=== PATIENT | female | born 1940 | race Caucasian/White ===

== ENCOUNTER 2019-07-25 08:49 | Outpatient (CLI) | payer MEDICARE, BC, SELFPAY ==
[2019-07-25 09:08] LABS: Abs Immature Grans 0.01 k/cumm (0.0-0.09); Absolute Basophil Count 0.04 k/cumm (0.0-0.2); Absolute Eosinophil Count 0.08 k/cumm (0.0-0.7); Absolute Lymphocyte Count 1.94 k/cumm (1.2-3.4); Absolute Monocyte Count 0.78 k/cumm (0.11-0.7); Absolute Neutrophil Count 3.34 k/cumm (1.2-6.7); Basophils % 0.6; Eosinophils % 1.3; HCT 40.9 % (36.0-46.0); HGB 13.2 g/dL (12.0-15.5); Immature Grans % 0.2; Lymphocytes % 31.3; Mean Corp. HGB Concentration 32.3 g/dL (32.0-36.0); Mean Corpuscular Hemoglobin 30.6 pg (27.0-33.0); Mean Corpuscular Volume 94.7 fL (80-95); Mean Platelet Volume 9.2 fL (8.0-11.0); Monocytes % 12.6; Platelet Count 211 x1000/uL (130-400); RBC 4.32 m/cumm (4.00-5.20); RBC Distribution Width 12.7 % (11.7-14.6); White Blood Cell Count 6.19 k/cumm (4.4-10.8)
[2019-07-25 09:24] LABS: ALT 16 U/L (14-59); AST 15 U/L (15-37); Albumin 3.1 g/dL (3.4-5.0); Alkaline Phosphatase 47 U/L (46-116); Anion Gap 8.3 mmol/L (3-11); BUN 15 mg/dL (7-18); Bilirubin, Total 0.7 mg/dL (0.2-1.0); CO2 27.7 mmol/L (21.0-32.0); CREATININE 0.93 mg/dL (0.55-1.02); Calcium 8.8 mg/dL (8.5-10.1); Chloride 109 mmol/L (98-107); Estimated GFR 58.31 (mL/min/1.73m2); Glucose 112 mg/dL (70-100); Potassium 4.1 mmol/L (3.5-5.1); Sodium 145 mmol/L (136-145); Total Protein 6.8 g/dL (6.4-8.2)
== END 2019-07-25 09:09 ==
PROVIDERS: PCP Family Medicine; Visit Provider Nurse Practitioner
DX: C54.1 Malignant neoplasm of endometrium (principal)
CPT/HCPCS: 36415; 80053; 85025

== ENCOUNTER 2023-08-12 00:12 | Inpatient (IN) | payer MEDICARE, BC, SELFPAY ==
--- NOTE | 2023-08-11 23:35 | HPE_ITS ---
Date of service: 08/11/23 Time of Service: 23:35 Assessment and Plan Assessment and plan (1) Hypertensive crisis without congestive heart failure: Start date: 08/11/23 Status: Acute Assessment and plan: This is an 83-year-old lady who was admitted 3 [facility] ED with hypertensive crisis requiring nicardipine drip initially and that facility which was weaned off prior to transfer to this facility for observation overnight and continued treatment of her uncontrolled hypertension. Her symptoms were not present at the time I saw the patient and she appears to be at baseline chronic medical conditions with mostly discussion about chronic pain and her disability. There is also quite extensive discussion about her inability to take multiple medications. She does have a history of diastolic dysfunction heart failure no mentation of heart failure at this presentation. She will have labs including troponin monitoring the patient having a history of chronically elevated troponins. She also has CKD which may contribute to this. If she remains s table she will be transferred back to her home with 24-hour care soon as possible. She is a full code. (2) Headache: Start date: 08/11/23 Status: Acute Assessment and plan: Patient is a poor historian and it is difficult to assess how severe her h eadache was as associated with her hypertension. She may have been anxious with her hypertension exacerbated by not taking her evening medications because of a headache rather than the headache being a result of her uncontrolled hypertension. Imaging appear to be stable. She appears to be stabilizing on increased dose of carvedilol which will be continued. Tylenol was given for headache. She is difficult to assess for pain since she has chronic pain and complains of continuous issues. (3) Hypertension: Assessment and plan: Chronic with difficulty treatment because of side effect of medications. Advance Coreg to 6.25 mg twice daily and reassess home medication list which has been updated. It appears she is on furosemide and continue to check her electrolytes though her lab at [facility] did not show any hypomagnesemia or hypokalemia. Long-term patient needs to lose weight and become more active which is unlikely. She is a full code. (4) Elevated troponin level not due to acute coronary syndrome: Status: Chronic Assessment and plan: Emergency room physician at [facility] reported that the patient has chronically elevated troponins which are stable which will be followed locally as well. (5) CKD (chronic kidney disease), stage II: Assessment and plan: This may contribute to chronically elevated troponins not normalizing. Monitor lab while in the hospital. Encourage oral hydration. (6) Hypothyroidism: Assessment and plan: Follow-up on [place] Thyroid dosing which may not be available at this hospital. Long-term follow-up with PCP. Check TSH. (7) PAF (paroxysmal atrial fibrillation): Assessment and plan: Patient appears to have controlled rate with medical regimen which will be continued. She is allergic to metoprolol and has been previously on diltiazem which has been stopped. Carvedilol may help control rate. (8) Epilepsy: Assessment and plan: Continue antiepileptics while in the hospital and follow-up neurology and PCP as scheduled. History of Present Illness History of Present Illness Chief Complaint: Blurred vision with headache and high blood pressure measurements at home Narrative: This is an 83-year-old female patient who was transported from [facility] after being evaluated and treated for hypertensive crisis with nicardipine drip which was weaned quickly when patient's systolic blood pressure responded dramatically. The patient was asymptomatic at the time I saw her noncompliant of blurred vision or headache and 100 and history not being able to answer questions about her history or medications. Her son did bring her home medications 2 [facility] ED and her medication list was updated. There is question whether she was compliant with her carvedilol and was on very low-dose at home. She has failed multiple medications because of side effects and allergies. She mentions that vitamin B12 recently was causing problems with her having itching and also GI symptoms. This appears to be a recurrent issue. She has a history of seizures status post CVA with left arm pain and weakness. She has pain over her entire body. Chronic problems include hypertension not well controlled presently, hypothyroidism on [place] Thyroid, Parkinson disease, GERD, depression, obstructive sleep apnea, diastolic congestive heart failure and mood disorder with chronic pain. She does not at home with 24-hour care and does occasionally ambulate with a walker but mostly does not walk because of pain in her lower extremities after her stroke. Her lower extremities are less weak than her left arm. She is a full code. Review of Systems Narrative: 13 point review of systems otherwise unrevealing or markedly positive for any question asked. She appears to be overall stable with 24-hour care and very little activity. She is awake. [facility] All Active Problems (Updated 08/12/23 @ 04:39 by Walt Montesinos) Elevated troponin level not due to acute coronary syndrome (Chronic) Headache (Acute) Hypertensive crisis without congestive heart failure (Acute) Medical History Anosmia Carotid arterial disease Carotid stenosis, asymptomatic Chronic fatigue CKD (chronic kidney disease), stage II Endometrial cancer Epilepsy Hypertension Hypothyroidism Memory changes PAF (paroxysmal atrial fibrillation) Resting tremor Surgical History History of appendectomy 196 History of cardiac cath 2009 History of cataract surgery 2005 History of cranial surgery Craniofacial APPR. -ANT FOSSA intradural resect of frontal lobe, 2010 History of hysterectomy 2013 History of laparoscopy with bilateral total pelvic lymphadenopathy, periaortic lymph node sampling, robotic. 2013 History of musculoskeletal system surgery History of surgery repair dura, secondary for CSF leak with flap, 2010 History of surgery excision or resection, lesion ANT. Fossa intradural, 2010 History of surgery Stereotactic computer assisted navigational cranial intradural, 2010 History of tubal ligation History of YAG laser capsulotomy of lens 2013 Social History Smoking/Tobacco Use Status: Never Smoking risk assessment performed?: Yes Alcohol Intake: never Drug use: Never Substance use type: does not use Housing: house Do you feel safe at home: Yes Additional Social history: Patient lives at home with caregivers. No family present on admission, patient is a poor historian. Meds Allergies and Home Medications Allergies Allergy/AdvReac Type Severity Reaction Status Date / Time iodine Allergy Severe Verified 07/19/23 13:44 cigarette smoke Allergy Verified 07/19/23 13:44 docusate [From Colace] Allergy Verified 07/19/23 13:44 lisinopril Allergy Verified 07/19/23 13:44 losartan Allergy Verified 07/19/23 13:44 metoprolol Allergy Verified 07/19/23 13:44 Penicillins Allergy Verified 07/19/23 13:44 phenazopyridine Allergy Verified 07/19/23 13:44 Sulfa (Sulfonamide Allergy Verified 07/19/23 13:44 Antibiotics) fabric softener sheets Allergy Uncoded 07/19/23 13:44 flu vaccines Allergy Uncoded 07/19/23 13:44 perfume Ht52 Allergy Uncoded 07/19/23 13:44 seafood Allergy Uncoded 07/19/23 13:44 sileage Allergy Uncoded 07/19/23 13:44 vitamin b-complex Allergy Uncoded 07/19/23 13:44 Home Medications Medication Instructions Recorded Confirmed Type acetaminophen 500 mg tablet 500 mg PO BID 07/19/23 08/12/23 History (Tylenol Extra Strength) levetiracetam 250 mg tablet 125 mg PO DAILY 07/19/23 08/12/23 History (Keppra) albuterol sulfate 90 mcg/actuation 2 inh inhalation Q4H PRN PRN 08/12/23 08/12/23 History breath activated powder inhaler (ProAir RespiClick) carboxymethylcellulose sodium 1 % 1 drp ophthalmic (eye) BID 08/12/23 08/12/23 History eye drops in a dropperette carvedilol 3.125 mg tablet 3.125 mg PO BID 08/12/23 08/12/23 History fexofenadine 60 mg tablet 60 mg PO BID 08/12/23 08/12/23 History fluticasone propionate 50 2 spray intranasal DAILY PRN PRN 08/12/23 08/12/23 History mcg/actuation nasal spray,suspension furosemide 20 mg tablet 20 mg PO DAILY 08/12/23 08/12/23 History hydroxyzine HCl 25 mg tablet 25 mg PO Q4H PRN PRN 08/12/23 08/12/23 History oxcarbazepine 150 mg tablet 150 mg PO BID 08/12/23 08/12/23 History pantoprazole 40 mg tablet,delayed 20 mg PO DAILY 08/12/23 08/12/23 History release thyroid (pork) 30 mg tablet 30 mg PO DAILY 08/12/23 08/12/23 History ([place] Thyroid) Exam Narrative Exam Narrative: General: Patient appears older than stated age, very talkative with pressured speech and wandering conversation, alert and oriented at least to person and place. She is in no acute distress but appears to be chronically distressed by her pain and discomfort with any part of body that is touched causing her to cry out in pain. She is obese. She appears deconditioned. HEENT: Normocephalic, eyes with pupils equal react light symmetrically, extraocular movement tachycardia sclera anicteric. Oropharynx with slightly dry mucosa and poor dentition. Neck: Supple without JVD. Back: Kyphotic without CVA tenderness. Lungs: Bronchovesicular breath sounds diffusely with fair aeration and no focalizing rales or rhonchi. Breast: Exam deferred. Heart: Irregular rhythm with normal rate, 3/6 to 4/6 systolic murmur left sternal border and apex. No gallop or rub. Abdomen: Obese contour, soft with diffuse tenderness but no guarding and no rebound. No palpable hepatosplenomegaly. Bowel sounds positive all quadrants. Genitalia/rectal: Exam deferred. Extremities: Without clubbing, cyanosis or pitting edema with patient having grossly nonpitting edema of lower extremities especially with obesity and left upper extremity having nonpitting edema compared to right with tender to palpation over legs and left arm. Skin: Pale, warm and dry. Neuro: Cranial nerves II through XII gross intact, decreased strength left upper extremity being 3-4 out of 5 with lower extremities moving normally the patient overall appearing weak stated she does not usually ambulate at home. She has no tremor. Psych: Flattened affect with depressed mood. Rumination over somatic complaints. No other abnormal thought processes. Remote and recent memory appear to be grossly intact though very difficult to follow patient's conversation and she does not know details such as her medication except that she has side effects to many. Results Labs 08/12/23 05:35 08/12/23 00:18 Labs: [facility], patient CBC was normal with normal WBC and hemoglobin as well as platelet count. BNP was elevated at 197 which is only slightly elevated. CMP was positive for glucose slightly up to 107 and calcium low at 8.3 with magnesium normal at 2 potassium normal at 3.6 liver function normal including total protein and albumin at 6.5 and 3.7 respectively. EKG showed sinus rhythm with moderate ST depression with no acute changes. CT of the head showed no acute intracranial pathology but chronic findings of bifrontal craniotomy defects and bilateral inferior frontal encephalomalacia as well as old lacunar infarcts within the right ledesma radiata. There is no evidence of intracranial mass or bleed. Chest x-ray showed mild linear bibasilar atelectasis with arthritic changes of the skeletal structures and no acute findings. Time Spent Time spent with Patient: >75 minutes Time was spent: preparing to see the patient(eg.review tests), obtaining and/or reviewing separately otained hiistory, ordering medications,tests, procedures, referring, communicating with other health career technical counselor, indepentently interpreting results and care coordination
[2023-08-12] VITALS (158 sets, daily range): BP systolic 116–209; BP diastolic 48–132; PULSE 61–82; RESP 11–42; TEMP 36.4–38; O2SAT 91–97
[2023-08-12 02:05] LABS: COVID-19 PCR Negative (Negative); Influenza A PCR Negative (Negative); Influenza B PCR Negative (Negative); RSV PCR Negative (Negative)
[2023-08-12 02:29] LABS: Source Nasopharynx
[2023-08-12 02:54] LABS: Bilirubin Negative (Negative); Blood Trace-intact (Negative); Clarity Clear (Clear); Glucose Negative (Negative); Ketones Negative (Negative); Leukocyte Esterase Small (Negative); Nitrite Negative (Negative); Specific Gravity 1.015 (1.005-1.025); Urobilinogen 0.2 mg/dL (Up to 0.2)
[2023-08-12 02:58] LABS: Bacteria Rare HPF (Negative); C & S Indicated? Yes; Casts Negative LPF (Negative); Crystals Negative HPF (Negative); Epithelial Cells Rare HPF (Negative); Mucus Negative (Negative); RBC 0-2 HPF (0-2)
[2023-08-12] MEDS: Normal Saline Flush 10 ML SYR IVP (05:44)
--- NOTE | 2023-08-12 06:37 | NUR.NOTE ---
Nursing Note: Breakfast ordered for patient. Patient requested milk despite stating that she is lactose intolerant. Dietary will send half&half.
[2023-08-12 06:46] LABS: HCT 36.3 % (36.0-46.0); HGB 11.9 g/dL (11.2-15.7); MCH 29.8 pg (27.0-33.0); MCHC 32.8 % (32.0-36.0); MCV 91 fL (80-95); MPV 9.5 fL (8.0-11.0); Platelet Count 222 10^3/uL (130-400); RDW 13.9 % (11.7-14.6); RDW-SD 46.5 fL; WBC 5.37 10^3/uL (4.4-10.8)
[2023-08-12 07:14] LABS: ALT 13 U/L (14-59); AST 16 U/L (15-37); Albumin 2.9 g/dL (3.4-5.0); Alkaline Phosphatase 49 U/L (46-116); Anion Gap 6.6 mmol/L (3-11); BUN 12 mg/dL (7-18); Bilirubin, Total 0.9 mg/dL (0.2-1.0); CO2 28.4 mmol/L (21.0-32.0); Calcium 8.7 mg/dL (8.5-10.1); Chloride 107 mmol/L (98-107); Estimated GFR 56.25 (mL/min/1.73m2); Glucose 101 mg/dL (74-106); Potassium 3.5 mmol/L (3.5-5.1); Sodium 142 mmol/L (136-145); TSH (W/Ref FT4) 15.51 uIU/mL (0.36-3.74); Total Protein 6.5 g/dL (6.4-8.2); Troponin I < 50 ng/L (<or=60)
[2023-08-12 07:34] LABS: FREE T4 0.75 ng/dL (0.76-1.46)
[2023-08-12] MEDS: Aspirin E.C. 81 MG TABEC PO (08:11)
[2023-08-12] MEDS: Carvedilol 6.25 MG TAB PO ×2 (08:11→19:28)
[2023-08-12] MEDS: niCARdipine 25 MG in Normal Saline 240 ML 50 MG IV (09:11)
[2023-08-12] MEDS: Enoxaparin 40 MG/0.4 ML SYR SC (09:19)
[2023-08-12] MEDS: amLODIPine 5 MG TAB 2.5 MG PO ×2 (10:00→17:21)
--- NOTE | 2023-08-12 10:12 | TELEP.MEDR_ITS ---
Date of service: 08/12/23 Time of Service: 10:12 Telepharmacy Home Med Rec Allergies Allergies: iodine Allergy (Severe, Verified 07/19/23 13:44) cigarette smoke Allergy (Verified 07/19/23 13:44) docusate [From Colace] Allergy (Verified 07/19/23 13:44) lisinopril Allergy (Verified 07/19/23 13:44) losartan Allergy (Verified 07/19/23 13:44) metoprolol Allergy (Verified 07/19/23 13:44) Penicillins Allergy (Verified 07/19/23 13:44) phenazopyridine Allergy (Verified 07/19/23 13:44) Sulfa (Sulfonamide Antibiotics) Allergy (Verified 07/19/23 13:44) fabric softener sheets Allergy (Uncoded 07/19/23 13:44) flu vaccines Allergy (Uncoded 07/19/23 13:44) perfume Ht52 Allergy (Uncoded 07/19/23 13:44) seafood Allergy (Uncoded 07/19/23 13:44) sileage Allergy (Uncoded 07/19/23 13:44) vitamin b-complex Allergy (Uncoded 07/19/23 13:44) Interview Person Interviewed: * Son (Raul Krueger) Quality Quality of Interview/Accuracy of Medication List: Excellent Sources Sources used to compile medication list: [facility] Medication List, Patient List and SureScripts Changes made to Home Medication List: ADDITIONS: * none DELETIONS: * Protonix * Keppra * Fexofenadine * Hydroxyzine CHANGES: * none Additional Notes Additional Notes: * none Recommended Changes Recommended Changes(reason for recommendation): * none Attestation: The home medication list is now updated to the best of my knowledge and is ready to be reconciled by the provider. Please contact the TelePharmacy Medication Reconciliation Pharmacist at for any questions.
--- NOTE | 2023-08-12 10:45 | INITIAL_ITS ---
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 They have radio time buyer 24/7 caregivers in the home. Her son Raul lives nearby and is very supportive. CURRENT FUNCTIONAL STATUS:: Ava was lying in bed when CM met with her. She stated that she is doing ok today. She was pleasant, but did not openly share information with this sign writer hand. She reported that she is happy with her care. CM attempted to call Raul, her son, for more information. Ava's caregiver, Shanna, reported that [place] is traveling to see Ava today, as [facility] is about an hour and a half from their home. CM will continue to follow. ADVANCE DIRECTIVES:: Not on file at [facility]. Has patient been provided with info about the portal/API?: Yes Did the patient sign up for the portal?: No CODE STATUS:: Full Code INSURANCE COVERAGE / FINANCIAL ISSUES:: [facility]. BC/BS out of state. CURRENT HOME/COMMUNITY SERVICES/EQUIPMENT:: 24/7 caregivers PRIMARY CARE PHYSICIAN:: Enma Sargent; [facility] in [place], [place]. POTENTIAL DISCHARGE NEEDS:: Follow up appointments. PATIENT/FAMILY EDUCATION NEEDS:: Review discharge instructions and limitations, discussion of self care needs including ask me three. ANTICIPATED BARRIERS TO DISCHARGE:: None identified. TRANSPORTATION:: Via private vehicle by her son, Raul. PLAN:: Anticipate Ava will return home once medically cleared. Her son will drive her home, and she will resume her 19/06 care. She will follow up with her PCP and discharge plan of care CM will continue to follow. PFSH All Active Problems (Updated 08/12/23 @ 11:44 by Amarilys Castorena MD) Discharge planning issues (Acute) DVT prophylaxis (Acute) Elevated troponin level not due to acute coronary syndrome (Chronic) Hypertensive crisis without congestive heart failure (Acute) Medical History Anosmia Carotid arterial disease Carotid stenosis, asymptomatic Chronic fatigue CKD (chronic kidney disease), stage II Endometrial cancer Epilepsy Hypertension Hypothyroidism Memory changes PAF (paroxysmal atrial fibrillation) Resting tremor Surgical History History of appendectomy 196 History of cardiac cath 2009 History of cataract surgery 2005 History of cranial surgery Craniofacial APPR. -ANT FOSSA intradural resect of frontal lobe, 2011 History of hysterectomy 2014 History of laparoscopy with bilateral total pelvic lymphadenopathy, periaortic lymph node sampling, robotic. 2014 History of musculoskeletal system surgery History of surgery repair dura, secondary for CSF leak with flap, 2010 History of surgery excision or resection, lesion ANT. Fossa intradural, 2010 History of surgery Stereotactic computer assisted navigational cranial intradural, 2010 History of tubal ligation History of YAG laser capsulotomy of lens 2013 Social History Smoking/Tobacco Use Status: Never Smoking risk assessment performed?: Yes Alcohol Intake: never Drug use: Never Substance use type: does not use Housing: house Do you feel safe at home: Yes Additional Social history: Patient lives at home with caregivers. No family present on admission, patient is a poor historian.
[2023-08-12] MEDS: Refresh PLUS Eye Drops 0.4ml 1 EACH OU ×2 (11:26→19:29)
--- NOTE | 2023-08-12 11:34 | PGE_ITS ---
Date of Service Date of service: 08/12/23 Time of Service: 10:00 Assessment and Plan Assessment and plan (1) Hypertensive crisis without congestive heart failure: Start date: 08/11/23 Status: Acute Assessment and plan: BP much better. We are attempting to switch the patient to all oral medications: coreg + amlodipine. She did require nicardipine today, so I would keep her in the ICU for now. (2) Headache: Start date: 08/11/23 Status: Resolved Assessment and plan: The patient now adamantly denies having a headache. It was all the other pains (such as chest pain, LUE pain, leg pain, foot pain) that brought her to the ER. (3) Hypertension: Assessment and plan: As above (4) Elevated troponin level not due to acute coronary syndrome: Status: Chronic Assessment and plan: Troponin this am was negative. I am repeating it and obtaining a repeat EKG. Doubt ACS. (5) CKD (chronic kidney disease), stage II: Assessment and plan: Cr is 1.0 today, GFR is 56.25. Continue to monitor (6) Hypothyroidism: Assessment and plan: Usually on [place] Thyroid 30 mg daily. TSH was 15. Increase armour thyroid to 45 mg daily. (7) PAF (paroxysmal atrial fibrillation): Assessment and plan: Rates appear controlled on coreg. Continue. (8) Epilepsy: Assessment and plan: We are clarifying antiepeliptics. (9) DVT prophylaxis: Status: Acute Assessment and plan: D/c SCDs as she is on enoxaparin and has BLE tenderness. (10) Discharge planning issues: Status: Acute Assessment and plan: Full code C/s PT and palliative care. Has 24 hr care at home as is expected to return home on discharge. Total Critical Care Time 40 minutes. Subjective Subjective Interval history since last seen: Ms Krueger states that she never had a headache yesterday. She did have a chest pain and arm pain (chronic), back pain (chronic), and leg pain (chronic). Chest pain has resolved. She states she is not having blurred or double vision. The eyes do feel dry and she usually uses refresh tears. She states her son is bringing her medications to the hospital so that we can make sure that they are right. She states her seizure meds were changed recently. Denies nausea. Was started on cardene gtt this morning when her BP was 206/84, then down to 1 86/70. Exam Narrative Exam Narrative: General: Pleasant mildly anxious Elderly female who is A&Ox3, NAD HEENT: EOMI, MMM Heart: RRR, + JOSE Lungs: CTAB Abdomen: soft, nontender, nondistended Extremities: +1 edema BLEs, symmetric, wearing SCDs; TTP tibial surfaces. Objective Last Vital Signs Temp 36.6 C 08/12/23 11:05 Pulse 68 08/12/23 11:05 Resp 20 08/12/23 11:05 BP 126/53 L 08/12/23 11:05 Pulse Ox 93 08/12/23 11:05 Laboratory Results - last 24 hr 08/12/23 08/12/23 08/12/23 01:10 01:10 05:30 WBC RBC Hgb Hct MCV MCH MCHC RDW Plt Count MPV Sodium 142 Potassium 3.5 Chloride 107 Carbon Dioxide 28.4 Anion Gap 6.6 BUN 12 Creatinine 1.0 Est GFR (CKD-EPI 2020) 56.25 Glucose 101 Calcium 8.7 Total Bilirubin 0.9 AST 16 ALT 13 L Alkaline Phosphatase 49 Troponin I < 50 Total Protein 6.5 Albumin 2.9 L TSH 15.51 H Free T4 0.75 L Urine Color Yellow Urine Clarity Clear Urine pH 7.0 Ur Specific [place] 1.015 Urine Protein Negative Urine Ketones Negative Urine Blood Trace-intact H Urine Nitrite Negative Urine Bilirubin Negative Urine Urobilinogen 0.2 Ur Leukocyte Esterase Small H Urine RBC 0-2 Urine WBC 3-5 Ur Epithelial Cells Rare Urine Crystals Negative Urine Bacteria Rare Urine Casts Negative Urine Mucus Negative Ur Culture Indicated? Yes Urine Glucose Negative Digoxin Cancelled COVID-19 Source Nasopharynx SARS-CoV-2 (PCR) Negative Influenza Type A (PCR) Negative Influenza Type B (PCR) Negative RSV (PCR) Negative 08/12/23 08/12/23 05:30 05:35 WBC 5.37 RBC 4.00 Hgb 11.9 Hct 36.3 MCV 91 MCH 29.8 MCHC 32.8 RDW 13.9 Plt Count 222 MPV 9.5 Sodium Cancelled Potassium Cancelled Chloride Cancelled Carbon Dioxide Cancelled Anion Gap Cancelled BUN Cancelled Creatinine Cancelled Est GFR (CKD-EPI 2020) Cancelled Glucose Cancelled Calcium Cancelled Total Bilirubin Cancelled AST Cancelled ALT Cancelled Alkaline Phosphatase Cancelled Troponin I Total Protein Cancelled Albumin Cancelled TSH Free T4 Urine Color Urine Clarity Urine pH Ur Specific [place] Urine Protein Urine Ketones Urine Blood Urine Nitrite Urine Bilirubin Urine Urobilinogen Ur Leukocyte Esterase Urine RBC Urine WBC Ur Epithelial Cells Urine Crystals Urine Bacteria Urine Casts Urine Mucus Ur Culture Indicated? Urine Glucose Digoxin COVID-19 Source SARS-CoV-2 (PCR) Influenza Type A (PCR) Influenza Type B (PCR) RSV (PCR) Time Spent with Patient Time Spent with Patient: 35-49 minutes Time was spent: preparing to see the patient(eg.review tests), obtaining and/or reviewing separately otained hiistory, ordering medications,tests, procedures, referring, communicating with other health career development manager, indepentently interpreting results, counseling the patient and care coordination
--- NOTE | 2023-08-12 11:45 | RT.EKG_ITS ---
APPROVED REPORT Exam: Resting ECG Reason for Exam: follow up chest pain Patient Location: I HR:70 bpm ECG Measurements Heart Rate 70 AXIS NC 148 P -18 QRSd 74 QRS -4 QT 470 T 54 QTc 508 Conclusion Sinus rhythm...normal P axis, V-rate 50- [address] depression, lateral leads...ST <-0.07mV, I aVL V5 V6 Prolonged QT interval...QTc >500mS
[2023-08-12 12:42] LABS: Troponin I < 50 ng/L (<or=60)
[2023-08-12] MEDS: OXcarbazepine 150 MG TAB PO ×2 (12:50→19:29)
[2023-08-12 16:49] LABS: COVID-19 PCR Negative (Negative); Influenza A PCR Negative (Negative); Influenza B PCR Negative (Negative); RSV PCR Negative (Negative); Source NASOPHARYNX
--- NOTE | 2023-08-12 17:09 | DI.RAD_ITS ---
Exam(s) XR PORTABLE CHEST AP EXAM: XR PORTABLE CHEST AP CLINICAL HISTORY: fever TECHNIQUE: 2D digital imaging was performed. COMPARISON: No exams were available for comparison FINDINGS: Leads overlie the chest. LUNGS: Clear. No pleural abnormality seen. HEART: Normal size. AORTA: Normal diameter. BONES: Unremarkable for age. Soft tissues: Unremarkable. IMPRESSION: No acute findings. DATA REPOSITORY: RADIATION DOSE DELIVERED:
--- NOTE | 2023-08-12 17:46 | DI.VRAD_ITS ---
PROCEDURE INFORMATION: Exam: XR Chest Exam date and time: 08/12/2023 4:50 PM Age: 83 years old Clinical indication: Fever TECHNIQUE: Imaging protocol: Radiologic exam of the chest. Views: 1 view. COMPARISON: No relevant prior studies available. FINDINGS: Tubes, catheters and devices: There are electrocardiographic leads on the thorax. Lungs: Unremarkable. No consolidation. Pleural spaces: Unremarkable. No pleural effusion. No pneumothorax. Heart/Mediastinum: The heart is normal in size and configuration. There is calcification within the normal-sized aorta. Bones/joints: Moderate degenerative changes of the osseous structures. IMPRESSION: No acute cardiopulmonary disease. Dictated and Authenticated by: Shahbaz Lopez MD. Ordering:PADMINI Panda MD
[2023-08-12 18:16] LABS: Bilirubin Negative (Negative); Blood Negative (Negative); Clarity Clear (Clear); Glucose Negative (Negative); Ketones Negative (Negative); Leukocyte Esterase Negative (Negative); Nitrite Negative (Negative); Urobilinogen 0.2 mg/dL (Up to 0.2); pH 7.5 (5-8)
[2023-08-12] MEDS: Refresh PLUS Eye Drops 0.4ml 1 EACH OP (19:30)
[2023-08-12] MEDS: niCARdipine 25 MG in Normal Saline 240 ML IV (19:37)
[2023-08-13] VITALS (87 sets, daily range): BP systolic 105–186; BP diastolic 49–105; PULSE 62–113; RESP 13–25; TEMP 36.2–37.4; O2SAT 93–96
[2023-08-13 06:57] LABS: Abs Immature Grans 0.02 10^3/uL (0.0-0.06); Absolute Basophil Count 0.04 10^3/uL (0.0-0.2); Absolute Eosinophil Count 0.06 10^3/uL (0.0-0.7); Absolute Lymphocyte Count 2.38 10^3/uL (1.2-3.4); Absolute Monocyte Count 0.97 10^3/uL (0.1-0.8); Absolute Neutrophil Count 3.49 10^3/uL (1.2-6.7); Basophils % 0.6; Eosinophils % 0.9; HCT 36.5 % (36.0-46.0); HGB 12.3 g/dL (11.2-15.7); Immature Grans % 0.3; Lymphocytes % 34.2; MCHC 33.7 % (32.0-36.0); MCV 89 fL (80-95); Monocytes % 13.9; Neutrophils % 50.1; RDW-SD 45.7 fL; WBC 6.96 10^3/uL (4.4-10.8)
[2023-08-13 07:21] LABS: Platelet Count 202 10^3/uL (130-400)
[2023-08-13 07:29] LABS: BUN 14 mg/dL (7-18); CREATININE 0.9 mg/dL (0.55-1.02); Calcium 8.9 mg/dL (8.5-10.1); Chloride 105 mmol/L (98-107); Estimated GFR 63.83 (mL/min/1.73m2); Glucose 102 mg/dL (74-106); Magnesium 2.1 mg/dL (1.8-2.4); Potassium 3.4 mmol/L (3.5-5.1); Sodium 140 mmol/L (136-145)
[2023-08-13] MEDS: Refresh PLUS Eye Drops 0.4ml 1 EACH OP ×2 (07:45→19:39)
[2023-08-13] MEDS: OXcarbazepine 150 MG TAB PO ×2 (07:45→19:38)
[2023-08-13] MEDS: amLODIPine 2.5 MG TAB 5 MG PO (07:45)
[2023-08-13] MEDS: Enoxaparin 40 MG/0.4 ML SYR SC (07:45)
[2023-08-13] MEDS: Cyanocobalamin 500 MCG TAB 1000 MCG PO (07:46)
[2023-08-13] MEDS: Carvedilol 6.25 MG TAB PO (07:46)
[2023-08-13] MEDS: Furosemide 20 MG TAB PO (07:46)
[2023-08-13] MEDS: Aspirin E.C. 81 MG TABEC PO (07:46)
[2023-08-13] MEDS: Potassium Chloride 10 MEQ CAPCR 20 MEQ PO ×2 (10:00→19:38)
--- NOTE | 2023-08-13 10:41 | W.PM.PROGNOT ---
Date of Service Date of service: 08/13/23 Time of Service: 10:41 Assessment and Plan Assessment and plan (1) Hypertensive crisis without congestive heart failure: Start date: 08/11/23 Status: Acute Assessment and plan: BP much improved on current oral regimen of amlodipine 5 mg daily and Coreg 6.25 mg bid. Nicardipine just shut off this a.m. Will watch her in the ICU for rest of this morning and early afternoon but if no exacerbations over 180 systolic then she could move to med/surg later today w/ telemetry. I would add spironolactone to her diuretic regimen to correct her hypokalemia and may help w/ keeping her out of CHF. (2) Headache: Start date: 08/11/23 Status: Resolved Assessment and plan: The patient now adamantly denies having a headache. It was all the other pains (such as chest pain, LUE pain, leg pain, foot pain) that brought her to the ER. Her pains seem to be multifocal and more increased sensitivity to touch rather than any soft tissue injury (3) Hypertension: Assessment and plan: As above (4) Elevated troponin level not due to acute coronary syndrome: Status: Chronic Assessment and plan: will check echocardiogram tomorrow given the severity of her hypertension to evlauate for LVH, LV wall motion abnoralities as this could guide titration of her diuretics and antihypertensives (5) CKD (chronic kidney disease), stage II: Assessment and plan: although her calculated eGR is 6.38 mL/min/1.73 m2, she has no proteinuria despite the severity of her HTN and all of her creatinine levels have been 1 or less. (6) Hypothyroidism: Assessment and plan: Usually on [place] Thyroid 30 mg daily. TSH was 15. Increase armour thyroid to 45 mg daily. recheck her thryoid levels in 6 to 8 weeks (7) PAF (paroxysmal atrial fibrillation): Assessment and plan: Rates appear controlled on coreg. Continue. Rhythm remains NSR (8) Epilepsy: Assessment and plan: We are clarifying antiepeliptics. (9) DVT prophylaxis: Status: Acute Assessment and plan: on enoxaparin, does not take any anticoagulants at home. (10) Discharge planning issues: Status: Acute Assessment and plan: Full code C/s PT and palliative care. Has 24 hr care at home as is expected to return home on discharge. No longer needs ICU care now she is off nifedipine drip as long as she does not have exacerbation over next couple hours Subjective Subjective Interval history since last seen: Patient BP has improved his morning. Nicardipine drip is now off, BP is 112/61 and HR is 65 SR. She denies any headache. She has diffuse chest wall pain but no dyspnea, she has reproducible tenderness over her left anterolateral chest wall and over her back and over her right posterolateral chest wall but also her legs. Exam Narrative Exam Narrative: Elderly white female who is mildly confused, obsessed about her medications She is alert, sitting up in her chair in no acute distress Lungs: clear Heart: RRR Abdomen: soft, nontender Legs: 1+ pedal and distal leg edema Objective Last Vital Signs Temp 37.4 C 08/13/23 08:00 Pulse 66 08/13/23 10:05 Resp 19 08/13/23 10:05 BP 118/58 L 08/13/23 10:05 Pulse Ox 94 08/13/23 06:00 Laboratory Results - last 24 hr 08/12/23 08/12/23 08/12/23 12:15 16:00 17:30 WBC RBC Hgb Hct MCV MCH MCHC RDW Plt Count MPV Immature Gran % Neutrophils % Lymphocytes % Monocytes % Eosinophils % Basophils % Nucleated RBC % Absolute Neutrophils Absolute Lymphocytes Absolute Monocytes Absolute Eosinophils Absolute Basophils Sodium Potassium Chloride Carbon Dioxide Anion Gap BUN Creatinine Est GFR (CKD-EPI 2020) Glucose Calcium Magnesium Troponin I < 50 Urine Color Yellow Urine Clarity Clear Urine pH 7.5 Ur Specific [place] 1.020 Urine Protein Negative Urine Ketones Negative Urine Blood Negative Urine Nitrite Negative Urine Bilirubin Negative Urine Urobilinogen 0.2 Ur Leukocyte Esterase Negative Urine Glucose Negative COVID-19 Source NASOPHARYNX SARS-CoV-2 (PCR) Negative Influenza Type A (PCR) Negative Influenza Type B (PCR) Negative RSV (PCR) Negative 08/13/23 08/13/23 05:32 05:32 WBC 6.96 RBC 4.10 Hgb 12.3 Hct 36.5 MCV 89 MCH 30.0 MCHC 33.7 RDW 14.0 Plt Count 202 MPV Immature Gran % 0.3 Neutrophils % 50.1 Lymphocytes % 34.2 Monocytes % 13.9 Eosinophils % 0.9 Basophils % 0.6 Nucleated RBC % 0.0 Absolute Neutrophils 3.49 Absolute Lymphocytes 2.38 Absolute Monocytes 0.97 H Absolute Eosinophils 0.06 Absolute Basophils 0.04 Sodium 140 Potassium 3.4 L Chloride 105 Carbon Dioxide 24.0 Anion Gap 11.0 BUN 14 Creatinine 0.9 Est GFR (CKD-EPI 2020) 63.83 Glucose 102 Calcium 8.9 Magnesium 2.1 Troponin I Urine Color Urine Clarity Urine pH Ur Specific [place] Urine Protein Urine Ketones Urine Blood Urine Nitrite Urine Bilirubin Urine Urobilinogen Ur Leukocyte Esterase Urine Glucose COVID-19 Source SARS-CoV-2 (PCR) Influenza Type A (PCR) Influenza Type B (PCR) RSV (PCR) Time Spent with Patient Time Spent with Patient: 35-49 minutes Time was spent: preparing to see the patient(eg.review tests), ordering medications,tests, procedures, referring, communicating with other health long term care social worker, indepentently interpreting results and care coordination
[2023-08-13] MEDS: Spironolactone 25 MG TAB PO (12:34)
[2023-08-13] MEDS: amLODIPine 5 MG TAB PO (18:41)
[2023-08-13] MEDS: Normal Saline Flush 10 ML SYR IVP (19:37)
[2023-08-13] MEDS: Carvedilol 6.25 MG TAB 12.5 MG PO (19:39)
[2023-08-14] VITALS (13 sets, daily range): BP systolic 120–168; BP diastolic 58–85; PULSE 63–76; RESP 16–23; TEMP 36.7–37.2; O2SAT 98
--- NOTE | 2023-08-14 08:00 | DI.US_ITS ---
Exam(s) US RENAL EXAM: US RENAL CLINICAL HISTORY: chronic kidney diseases; eval. size/structure. TECHNIQUE: Vines scale, color and spectral Doppler were used. COMPARISON: No exams were available for comparison FINDINGS: Renal size in cm: Right: 9.5 column Lonnie Left: 8.8 cm Echogenicity: Normal Hydronephrosis: No Cyst or mass: No Nephrolithiasis: No Bladder:Normal . Ureteral jets not visualized. Prevoid vol: 91 cc Postvoid vol: Patient unable to void IMPRESSION: Normal renal echogenicity. No stone or hydronephrosis. DATA REPOSITORY:
[2023-08-14 08:40] LABS: Anion Gap 8.8 mmol/L (3-11); BUN 14 mg/dL (7-18); CO2 24.2 mmol/L (21.0-32.0); Calcium 8.7 mg/dL (8.5-10.1); Chloride 107 mmol/L (98-107); Estimated GFR 56.25 (mL/min/1.73m2); Glucose 104 mg/dL (74-106); Potassium 3.5 mmol/L (3.5-5.1); Sodium 140 mmol/L (136-145)
[2023-08-14] MEDS: Aspirin E.C. 81 MG TABEC PO (08:49)
[2023-08-14] MEDS: Spironolactone 25 MG TAB PO (08:49)
[2023-08-14] MEDS: Carvedilol 6.25 MG TAB 12.5 MG PO (08:50)
[2023-08-14] MEDS: Cyanocobalamin 500 MCG TAB 1000 MCG PO (08:50)
[2023-08-14] MEDS: OXcarbazepine 150 MG TAB PO (08:50)
[2023-08-14] MEDS: amLODIPine 2.5 MG TAB 10 MG PO (08:50)
[2023-08-14] MEDS: Furosemide 20 MG TAB PO (08:51)
[2023-08-14] MEDS: Refresh PLUS Eye Drops 0.4ml 1 EACH OP (08:51)
[2023-08-14] MEDS: Enoxaparin 40 MG/0.4 ML SYR SC (08:51)
--- NOTE | 2023-08-14 09:32 | W.PM.PROGNOT ---
Date of Service Date of service: 08/14/23 Time of Service: 09:32 Assessment and Plan Assessment and plan (1) Hypertensive crisis without congestive heart failure: Start date: 08/11/23 Status: Acute Assessment and plan: BP much improved running in the 150's to 160, I think her levels are adequate for discharge home w/ outpatient titration of her bp meds. Echo can be pursued as outpatient if not able to complete today. I have written for her transfer to med/surg early this morning but she may be dc home prior to transfer. No further telemetry needed. Continue amlodipine 10 mg daily, coreg 12.5 mg bid, lasix 20 mg daily and spironolactone 25 mg daily. K+ now up to 3.5, I have stopped her potassium supplementation. Professional time spent interviewing and examining patient, discussion of goals of care with hospital team (care management, nursing and consulting professionals) was 30 minutes. (2) Hypertension: Assessment and plan: As above (3) Elevated troponin level not due to acute coronary syndrome: Status: Chronic Assessment and plan: can pursue echo as outpatient. she has not had any ischemic pain. I suspect her troponin leak was from her hypertension (4) CKD (chronic kidney disease), stage II: Assessment and plan: although her calculated eGR is 6.38 mL/min/1.73 m2, she has no proteinuria despite the severity of her HTN and all of her creatinine levels have been 1 or less. I do not believe she has any significant renal failure. Renal US was checked this morning and is pending results. (5) Hypothyroidism: Assessment and plan: Usually on [place] Thyroid 30 mg daily. TSH was 15. Increase armour thyroid to 45 mg daily. recheck her thryoid levels in 6 to 8 weeks (6) PAF (paroxysmal atrial fibrillation): Assessment and plan: Rates appear controlled on coreg. Continue. Rhythm remains NSR (7) Epilepsy: Assessment and plan: oxcarbazepine 150 mg bid. (8) DVT prophylaxis: Status: Acute Assessment and plan: on enoxaparin, does not take any anticoagulants at home. (9) Discharge planning issues: Status: Acute Assessment and plan: Full code C/s PT and palliative care. Has 24 hr care at home as is expected to return home on discharge. No longer needs ICU care now she is off nifedipine drip as long as she does not have exacerbation over next couple hours Subjective Subjective Interval history since last seen: Patient is doing better from her BP. She has not required any resumption of her nicardipine drip. She is now on amlodipine 10 mg daily along w/ carvedilol 12.5 mg bid as well as spironolactone and furosemide. I have requested P.T. consultation regarding evaluation and recommendation regarding amublation for readiness for home discharge. She states she [place] in [place], [place] and has 24 hour care. I will confer w/ CM as to her home situation and viabilitiy in getting her home. Possible dc later today. Renal US was just done this morning. Echo was ordered but may not get completed prior to her discharge as there were a number of echo's ordered over the weekend and the white goods appliance tech had to prioritize them. Patient has no dyspnea or CP but has her usual aches and pains in her legs, lower back (chronic condition for and she has been evaluated by pain center) Exam Narrative Exam Narrative: Eldery white female in no acute distress, lying in bed, alert and oriented to person/place Lungs: clear Heart: regular (monitor shows SR 68 bpm), soft systolic murmur heard over apex, c/w MR Abdomen, soft, nontender Legs: 1+ edema, tender to palpation w/out increased warmth nor any erythema, symmetrical swelling Objective Last Vital Signs Temp 37.2 C 08/14/23 05:01 Pulse 66 08/14/23 05:57 Resp 19 08/14/23 05:57 BP 150/74 H 08/14/23 05:57 Pulse Ox 98 08/14/23 05:01 Laboratory Results - last 24 hr 08/14/23 08:15 Sodium 140 Potassium 3.5 Chloride 107 Carbon Dioxide 24.2 Anion Gap 8.8 BUN 14 Creatinine 1.0 Est GFR (CKD-EPI 2020) 56.25 Glucose 104 Calcium 8.7 Magnesium 2.0 Time Spent with Patient Time Spent with Patient: 25-34 minutes Time was spent: preparing to see the patient(eg.review tests), ordering medications,tests, procedures, indepentently interpreting results, counseling the patient and care coordination
--- NOTE | 2023-08-14 09:42 | PDOC.CMPRO ---
Date of service: 08/14/23 Time of Service: 09:42 Care Management Progress Note Progress Note Text Progress Note Text: S/O: A: Ava is an 83 year old female admitted to [facility] on 08/12/23 for hypertensive crisis. P: Anticipate Ava will return home once medically cleared. Her son will drive her home, and she will resume her 19/06 care. She will follow up with her PCP and discharge plan of care CM will continue to follow.
--- NOTE | 2023-08-14 11:24 | PT.INIE ---
Date of service: 08/14/23 Time of Service: 11:24 PT Notes Visit Reasons: Hypertensive Crisis Physical Therapy Inpatient Initial Evaluation Date: 08/14/2023 Referring Doctor: Jean Mathew MD PT Orders: PT CONSULT: Fall safety assessment Precautions: Fall. Standard. Activity as tolerated. Patient Profile/Admitting Diagnosis: Ava is an 83-year-old female admitted to the ICU for management of hypertensive crisis with CHF, headache, hypertension, elevated troponin, chronic kidney disease, hypothyroidism, PAF, and epilepsy. PMHX: All Active Problems?(Updated 08/12/23 @ 04:39 by Walt Montesinos) Elevated troponin level not due to acute coronary syndrome (Chronic) Headache (Acute) Hypertensive crisis without congestive heart failure (Acute) Medical History? Anosmia Carotid arterial disease Carotid stenosis, asymptomatic Chronic fatigue CKD (chronic kidney disease), stage II Endometrial cancer Epilepsy Hypertension Hypothyroidism Memory changes PAF (paroxysmal atrial fibrillation) Resting tremor Surgical History? History of appendectomy 1960 History of cardiac cath 2009 History of cataract surgery 2005 History of cranial surgery Craniofacial APPR. -ANT FOSSA intradural resect of frontal lobe, 2010 History of hysterectomy 2013 History of laparoscopy with bilateral total pelvic lymphadenopathy, periaortic lymph node sampling, robotic. 2013 History of musculoskeletal system surgery History of surgery repair dura, secondary for CSF leak with flap, 2010 History of surgery excision or resection, lesion ANT. 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 Has / caregivers. Modified independent with use of [employer]. Equipment Owned/DME: [employer] Subjective: Confident about going home today as she has people who can take care of her at home. Denies headache, chest pain, and lightheadedness throughout session. Objective: General Observation: Seated on bedside chair. Telemetry monitoring in place. Mental Status: Alert and oriented as to person, place, time, and purpose. Able to pay attention, focus, and respond appropriately. Pain: Denies Vital Signs: Closely monitored via telemetry ROM: Right Upper Extremity: Shoulder Flexion WFL. Shoulder abduction WFL. Elbow flexion WFL. Wrist flexion WFL. Functional opening and closing of hand WFL. Left Upper Extremity: Shoulder Flexion WFL. Shoulder abduction WFL. Elbow flexion WFL. Wrist flexion WFL. Functional opening and closing of hand WFL. Right Lower Extremity: Hip flexion WFL. Hip abduction WFL. Knee flexion WFL. Ankle dorsiflexion WFL. Ankle plantarflexion WFL. Left Lower Extremity: Hip flexion WFL. Hip abduction WFL. Knee flexion WFL. Ankle dorsiflexion WFL. Ankle plantarflexion WFL. Strength: Right Upper Extremity: Shoulder flexors 4/5. Shoulder abductors 4/5. Elbow flexors 4/5. Elbow extensors 4/5. Shipping And Receiving strong. Left Upper Extremity: Shoulder flexors 4/5. Shoulder abductors 4/5. Elbow flexors 4/5. Elbow extensors 4/5. Shipping And Receiving strong. Right Lower Extremity: Hip flexors 4/5. Hip abductors 4/5. Knee flexors 4/5. Knee extensors 4/5. Ankle dorsiflexors 4/5. Ankle plantarflexors 4/5. Left Lower Extremity: Hip flexors 4/5. Hip abductors 4/5. Knee flexors 4/5. Knee extensors 4/5. Ankle dorsiflexors 4/5. Ankle plantarflexors 4/5. Bed Mobility/Transfers: Rolling independent Supine to sit independent Sit to supine independent Sit to stand supervision with [employer] Stand to sit supervision with SB[employer] Gait: Instructed patient with level surface ambulation of 80 feet requiring stand by assist using SBQC. Leandra decreased. Step height decreased. Step length decreased. Balance: Static Sitting: Normal Dynamic Sitting: Normal Static Standing: Fair Dynamic Standing: Fair Special Tests: Mobility Limitations Standardized Measure [facility] AM-PAC 6 clicks Basic Mobility Inpatient Short Form: Raw Score: 23 CMS Score: % deficit Informed Consent/Education: Patient was instructed in purpose of PT consult. Agreeable to home health PT services to ensure a smooth transition to home for her. Assessment: Patient presents with clinical signs and symptoms consistent with current/admitting diagnoses that have resulted to mobility limitations, gait instability, generalized weakness, and overall ADL decline as demonstrated by the following impairment level findings: 1. Impaired standing balance 2. Impaired activity tolerance 3. Shortness of breath Impairments are contributing to the following functional limitations: 1. Difficulty with ambulation without assistive device 2. Increased completion time for mobility ADL performance 3. Increased risk for falls Patient is assessed as a 9716 moderate complexity based on the following: History: 83-year-old female with past medical history as indicated above Examination: Demonstrable impairment in strength, balance, and mobility level with underlying impairments and functional limitations as exhibited above as well as deficit score of 11% utilizing the [facility] Mobility Inpatient Short Form Presentation: Evolving Decision Makin moderate complexity Goals: N/A. PT evaluation 1 treatment session only for functional mobility training. Plan of Care/Treatment Plan: N/A. PT evaluation 1 treatment session only for functional mobility training. DISCHARGE RECOMMENDATIONS: [] Home with no services [] [X] Home with services. Patient will benefit from home health PT services in order to progress mobility level using least restrictive assistive ambulatory device, assess home safety, identify additional equipment needs, and establish a functional maintenance program that will increase ability of patient to remain at home. [] Home with outpatient PT [] [] SNF for continued rehabilitation [] [] [employer] Care [] [] SNF versus LTC based on ability to participate and progress [] TREATMENT CODE/TIME: 16864 x 27 minutes for 1 unit beginning at 11:24 AM. Thank you for the opportunity to participate in the care of this patient. Mana Rosas PT, DPT, CLT [facility] [place], [place]
--- NOTE | 2023-08-14 12:46 | DI.US_ITS ---
APPROVED REPORT EXAM: Comprehensive 2D, Doppler, and color-flow Echocardiogram Patient Location: In-Patient Room/Bed: ICU Indications: Elevated troponin, Evaluate LV function, HTN A Fib Other Information Study Quality: Adequate. Technically limited study due to inability to position patient exam done sup ine bedside icu,, body habitus. Conclusion Mild concentric left ventricular hypertrophy. Ejection fraction is 55%. Wall motion is normal Normal right ventricular size and systolic function Both atria are normal in size Aortic valve is mildly sclerotic and trileaflet with mild regurgitation Mild mitral annular calcification. Mild to moderate mitral regurgitation Normal tricuspid valve with trace regurgitation. Estimated right ventricular systolic pressure is 32 mmHg Wall motion Left Ventricle The left ventricle is normal size. The left ventricular systolic function is normal. The left ventric ular ejection fraction is within the normal range. Mild concentric left ventricular hypertrophy. Ther e is normal LV segmental wall motion. There is no ventricular septal defect visualized. LVEF is 55%. Right Ventricle The right ventricle is normal size. The right ventricular systolic function is normal. Atria The left atrium size is normal. The right atrium size is normal. The interatrial septum is intact wit h no evidence for an atrial septal defect. Aortic Valve The Aortic valve is mildly sclerotic. Aortic valve is trileaflet. There is no aortic valvular stenosi s. Mild aortic regurgitation. Mitral Valve Mild mitral annular calcification. No evidence of mitral valve stenosis. Mild to moderate mitral regu rgitation. Tricuspid Valve The tricuspid valve is normal in structure. There is no tricuspid valve stenosis. Trace tricuspid reg urgitation. The RVSP is 32.4 mmHg. Pulmonic Valve The pulmonary valve is normal in structure. There is no pulmonic valvular stenosis. Trace pulmonic re gurgitation. Great Vessels The aortic root is normal in size. The ascending aorta is normal in size. Aortic arch is not well vis ualized. IVC is normal in size and collapses >50% with inspiration. Pericardium There is no pericardial effusion. 2D Dimensions IVSD d PLAX 1.13 cm F: 0.6-1.0 Ao Root d 2.55 cm F: 2.7 - 3.3 LVPW d PLAX 1.10 cm F: 0.6 - 1.0 Ao Asc Diam d 2.96 cm F: 2.3 - 3.1 LVID d PLAX 4.51 cm F: 3.8 - 5.2 LVDs 3.21 cm F: 2.2 - 3.5 LV EF Teichholz 55.4 % FS 28.68 % LV EDV (Teich) 92.8 mL LV ESV (Teich) 41.4 mL Auto EF LV EDV A4C 91.3 mL LV EDV A2C 111.4 mL LV EDV BP 104.3 mL LV ESV A4C 41.0 mL LV ESV A2C 51.6 mL LV ESV BP 46.1 mL LVEF(%) A4C 55.0 % LVEF(%) A2C 53.7 % LVEF(%) BP 55.8 % LV SV A4C 50.2 ml LV SV A2C 59.8 ml LV SV BP 58.3 ml LV CO A4C 2.8 L/min LV CO A2C 3.8 L/min LV CO BP 3.3 L/min HR A4C 55.30 BPM HR A2C 62.72 BPM LV EDV Index (BP) LA Volume LA Length A4C 6.5 cm LA Length A2C 5.6 cm LA Area A4C s 21.05 cm2 LA Area A2C s 18.62 cm2 LA Vol A4C A-L 57.79 mL LA Vol A2C A-L 52.76 mL LA Vol Biplane A-L 59.6 mL LA Vol/BSA A4C A-L LA Vol/BSA A2C A-L LA Vol/BSA BP A-L 30.7 mL/m2 LA Vol A4C MOD 54.1 mL LA Vol A2C MOD 50.1 mL LA Vol BP MOD 56.1 mL RA Volume RA Area A4C 12.7 cm2 RA ESV A4C (A-L) 30.5mL RA Vol/BSA A4C A-L RA Length A4C 4.5 cm RA ESV A4C (MOD) 29.1mL LV Diastology MV E' medial 0.073 (>0.07 m/s) MV E Vmax 1.18 (0.4-1.3 m/s) MV E/E' MED 16.21 (<14) MV A Vmax 0.40 (0.4-1.3 m/s) MV E' lateral 0.059 (>0.1 m/s) E/A Ratio 3.0 MV E/E' LAT 19.88 (<14) MV E' Average 0.066 m/s MV E/E'(average) 17.86 Aortic Valve AoV Vmax 0.93 m/s LVOT Vmax 1.29 m/s AoV Peak Grad 3.5 mmHg LVOT Peak Grad 6.6 mmHg AoV Area (Vmax) 4.04 cm2 LVOT VTI 0.278 m AoV VTI 0.249 m LVOT Mean Grad 3.4 mmHg AoV Mean Reinier. 0.67 m/s LVOT SV 81.13 mL AoV Mean Grad 2.0 mmHg LVOT Diam s 1.90 cm AoV Area (VTI) 3.26 cm2 Velocity Ratio 1.39 Mitral Valve MV DT 244 (160-240 msec) Pulmonary Valve PV Vmax 0.81 (0.5-1.5 m/s) RVOT Vmax 0.77 m/s PV Peak Grad 2.6 mmHg RVOT Peak Gr. 2.4 mmHg PV Mean Reinier 0.62 m/s RVOT VTI 0.219 m PV Mean Grad 1.7 mmHg RVOT Mean Gr. 1.4 mmHg Tricuspid Valve RA Pressure 3.00 mmHg TR Vmax 2.71 m/s TV S' 0.14 m/s TR Peak Grad 29.4 mmHg RVSP (TR) 32.4 mmHg
--- NOTE | 2023-08-14 14:31 | DSE_ITS ---
Date of service: 08/14/23 Time of Service: 14:31 DS: Diagnosis Discharge Diagnosis (1) Hypertensive crisis without congestive heart failure: Status: Acute (2) Hypertension: (3) Elevated troponin level not due to acute coronary syndrome: Status: Chronic (4) CKD (chronic kidney disease), stage II: (5) Hypothyroidism: (6) PAF (paroxysmal atrial fibrillation): (7) Epilepsy: (8) DVT prophylaxis: Status: Acute (9) Discharge planning issues: Status: Acute Discharge Plan Disposition Condition: Improving Discharge Details Reason For Visit: Hypertensive Crisis Admit Date/Time: 08/12/23 00:12 Admit Provider: Jean Toledo Attending Provider: Jean Toledo Primary Care Provider: Enma Sargent [place] Meds and New Rx's Prescriptions: New carvedilol 6.25 mg Tablet 12.5 mg PO BID Qty: 60 0RF amlodipine 2.5 mg Tablet 10 mg PO DAILY Qty: 30 0RF spironolactone 25 mg Tablet 25 mg PO DAILY Qty: 30 0RF Continued acetaminophen [Tylenol Extra Strength] 500 mg tablet 500 mg PO BID PRN oxcarbazepine 150 mg tablet 150 mg PO BID Patient Comments: TAKE 1 TABLET BY MOUTH TWICE DAILY furosemide 20 mg tablet 20 mg PO DAILY Patient Comments: TAKE 1 TABLET BY MOUTH DAILY fluticasone propionate 50 mcg/actuation spray,suspension 2 spray INTRANASAL DAILY PRN PRN Patient Comments: SHAKE LIQUID AND USE 2 SPRAYS IN EACH NOSTRIL EVERY DAY carboxymethylcellulose sodium 1 % Dropperette 1 drp OPHTHALMIC (EYE) BID ProAir RespiClick 90 mcg/actuation aerosol powdr breath activated 2 inh INHALATION Q4H PRN PRN cyanocobalamin (vitamin B-12) 1,000 mcg Tablet Extended Release 1,000 mcg PO DAILY trolamine salicylate [Aspercreme] 10 % Cream 1 applic TOPICAL HS Rx Instructions: apply to B feet Changed thyroid (pork) [Drumore Thyroid] 30 mg tablet 45 mg PO DAILY Qty: 0 0RF Patient Comments: TAKE 1 TABLET BY MOUTH DAILY Discontinued carvedilol 3.125 mg tablet 3.125 mg PO BID Patient Comments: TAKE 1 TABLET BY MOUTH TWICE DAILY. STOP DILTIAZEM Discharge Instructions Instructions: Spironolactone (By mouth), Amlodipine (By mouth), Carvedilol (By mouth), Hypertensive Crisis (DC) Additional Instructions: You were treated for acute exacerbation of your hypertension which required intravenous vasodilators to bring your blood pressure under reasonable control and we have added amlodipine and increased the dose of your carvedilol and added another diuretic spironolactone. Please monitor your blood pressure twice a day and report your readings to your primary care provider. Target blood pressures for your age group are under 150/90. If you have sustained bp over 165/100 you should call your provider to have medications acutely adjusted. Activity:: Activity as Tolerated Equipment/Supplies:: No Equipment Needed Diet:: Low Sodium Discharge Orders Other Ambulatory Orders: Basic Metabolic Panel (Routine) Timeframe: 1 Week Facility: [facility] - Location: Laboratory Outpatient - [facility] Ordered By: Jean Toledo TSH (Routine) Timeframe: [id number] Facility: [facility] - Location: Laboratory Outpatient - [facility] Ordered By: Jean Toledo DS: Summary Time Spent with Patient providing and/or coordinating discharge services: Greater than 30 minutes Specific discharge activities: Interview/exam of patient; review of discharge instructions, completion of prescriptions/discharge instructions; discussion w/ nursing and CM; documentation of hospital visit Status at Discharge Functional status at discharge: uses cane/walker Overall status at discharge: patient is back to baseline Mental Status: mental status grossly normal Speech and Movement: speech and movement normal Mood: congruent mood Affect: normal affect Exam Narrative Exam Narrative: Eldery white female in no acute distress, lying in bed, alert and oriented to person/place Lungs: clear Heart: regular (monitor shows SR 68 bpm), soft systolic murmur heard over apex, c/w MR Abdomen, soft, nontender Legs: 1+ edema, tender to palpation w/out increased warmth nor any erythema, symmetrical swelling Psych Mental Status: mental status grossly normal Speech and Movement: speech and movement normal Mood: congruent mood Affect: normal affect DS: Data Vitals/I&O Vitals and I&O: Vital Signs Temperature 36.7 C 08/14/23 08:00 Temperature Source Temporal Artery Scan 08/14/23 00:10 Pulse 65 08/14/23 11:24 Pulse Rhythm Regular 08/12/23 21:04 Pulse 68 08/14/23 11:30 Respiratory Rate 18 08/14/23 11:30 Respiratory Effort Normal, Non-Labored 08/14/23 08:00 Respiratory Depth Normal 08/14/23 08:00 Respiratory Pattern Normal 08/14/23 08:00 Blood Pressure 138/58 L 08/14/23 11:24 Blood Pressure Mean 80 08/14/23 11:24 Blood Pressure Position Supine 08/14/23 08:00 Pulse Oximetry 98 08/14/23 05:01 Oxygen Delivery Method Room Air 08/14/23 08:00 Oxygen Flow Rate 0 08/14/23 08:00 Pain Level 0 08/13/23 19:18 Comment Narcadipne drip is dc'd. 08/12/23 11:05 Intake & Output 08/13/23 08/14/23 08/14/23 23:59 11:59 23:59 Intake Total 2 / 2 Output Total 725 / 1375 225 / 225 Balance -725 / -925 -223 / -223 Intake: IV 2 / 2 Output: Urine 725 / 1375 225 / 225 Other: Urine Color Pale Light Heather Yellow Urine Appearance Clear Clear Urine Odor None Normal Stool Size Moderate Stool Characteristics Soft Brown Voiding Methods Bedside Commode Bedside Commode Data Completed and Pending Labs on day of discharge: Labs from last 24 hours 08/14/23 08/14/23 08/14/23 08:15 08:15 08:15 Sodium 140 Potassium 3.5 Chloride 107 Carbon Dioxide 24.2 Anion Gap 8.8 BUN 14 Creatinine 1.0 Est GFR (CKD-EPI 2020) 56.25 Glucose 104 Calcium 8.7 Magnesium 2.0 Renin Activity Pending Aldosterone Pending Preliminary micro results at discharge 08/12/23 17:10 Blood Culture - Preliminary Blood NO GROWTH 24 HOURS 08/12/23 17:04 Blood Culture - Preliminary Blood NO GROWTH 24 HOURS PFSH All Active Problems Medication monitoring encounter (Acute) Discharge planning issues (Acute) DVT prophylaxis (Acute) Elevated troponin level not due to acute coronary syndrome (Chronic) Hypertensive crisis without congestive heart failure (Acute) Medical History Anosmia Carotid arterial disease Carotid stenosis, asymptomatic Chronic fatigue CKD (chronic kidney disease), stage II Endometrial cancer Epilepsy Hypertension Hypothyroidism Memory changes PAF (paroxysmal atrial fibrillation) Resting tremor Surgical History History of appendectomy 196 History of cardiac cath 2009 History of cataract surgery 2006 History of cranial surgery Craniofacial APPR. -ANT FOSSA intradural resect of frontal lobe, 2011 History of hysterectomy 2014 History of laparoscopy with bilateral total pelvic lymphadenopathy, periaortic lymph node sampling, robotic. 2014 History of musculoskeletal system surgery History of surgery repair dura, secondary for CSF leak with flap, 2010 History of surgery excision or resection, lesion ANT. Fossa intradural, 2010 History of surgery Stereotactic computer assisted navigational cranial intradural, 2010 History of tubal ligation History of YAG laser capsulotomy of lens 2012 Social History Smoking/Tobacco Use Status: Never Smoking risk assessment performed?: Yes Alcohol Intake: never Drug use: Never Substance use type: does not use Housing: house Do you feel safe at home: Yes Additional Social history: Patient lives at home with caregivers. No family present on admission, patient is a poor historian. Time Spent with Patient Time Spent with Patient: <45 minutes Time was spent: preparing to see the patient(eg.review tests), ordering medications,tests, procedures, referring, communicating with other health daycare director, indepentently interpreting results, counseling the patient and care coordination
--- NOTE | 2023-08-14 14:59 | PDOC.HHF2F_ITS ---
Home Health Referral Home Health Orders Clinical synopsis of why skilled professionals are needed: nursing to monitor medication compliance, blood pressure control, coordinate w/ her primary care provider; P.T. to work on her gait/strength and ambulation, provide exercises to promote her independent performance of her ADL Medical diagnosis necessitation home health referral: Hypertension urgency w/out acute CHF Registered Nurse: Check all that apply Instruct on new or changed medication(s)/assess compliance: Ordered Assess for exacerbation of medical condition, instruct patient/caregivers on signs and symptoms to report for early detection: Ordered Physical Therapist: Check all that apply Increase strength & endurance for safe mobility at home: Ordered To design/establish home maintenance program: Ordered Fall reduction therapy program for patient with history of frequent falls: Ordered Home safety evaluation and teaching/gait training including stair management (if applicable): Ordered Wafer Production Lead Worker: Assist with community resources: Ordered Home Bound Status Requires the aid of supportive device (check all that apply): Walker Patient has a condition such that leaving home is medically contraindicated (Describe): patient w/ recent exacerbation of her hypertension and multiple medication changes, necessitating initial care in the home as she is high risk for falls d/t fluctuating blood pressures Describe why leaving home would require a considerable and taxing effort: Requires frequent rest periods Encounter Date and Reason: I certify that a FTF encounter for this patient was performed on August 14, 2023 and that such encounter was related to the primary reason the patient requires home health services. The encounter was conducted in the following manner: * By me as the certifying physician, VISION IMPAIRED TEACHER, PA or * By an inpatient physician, VISION IMPAIRED TEACHER or PA during an inpatient stay who communicated findings to me, Certification And Authentication I certify that I composed the above information based on my clinical judgment relating to this patient's medical condition and, if applicable, clinical findings communicated to me by the NPP or inpatient physician who performed the FTF encounter. Name of Provider that will be monitoring home health services: Enma Sargent
--- NOTE | 2023-08-14 16:52 | PDOC.CMDIS ---
Date of service: 08/14/23 Time of Service: 16:52 LACE Index Scoring Tool Questions: Length of Stay (in days): 2 Was the patient admitted via the E.D.?: No E.D. Visits: 0 Answers: Total Score: 2 Risk of Readmission: Low Risk Care Management Discharge Plan Reason for Hospitalization: Hypertensive Crisis Discharge Plan: Ava returned home today with new orders for HH RN, PT, and a resumption of her 19/06 caregivers. Her son drove her home via private vehicle. She will follow up with her PCP and discharge plan of care. She is happy to be going home. Patient/Family Education Needs: Review discharge instructions and limitations, discussion of self care needs including ask me three. Services Needed at Discharge: [facility]
[2023-08-15 10:13] LABS: Oxcarbazepine Metabolite, S 4 mcg/mL (10 - 35)
[2023-08-17 15:50] LABS: Renin Activity, Plasma <0.6 ng/mL/h
== END 2023-08-14 16:32 | disposition home or self-care (01) | DRG 305 ==
PROVIDERS: Family Medicine; Internal Medicine; Admitting Provider Internal Medicine; PCP Family Medicine; Visit Provider Internal Medicine
DX: I16.9 Hypertensive crisis, unspecified (principal); R51.9 Headache, unspecified; N18.2 Chronic kidney disease, stage 2 (mild); R74.8 Abnormal levels of other serum enzymes; I48.0 Paroxysmal atrial fibrillation; E03.9 Hypothyroidism, unspecified; G40.909 Epilepsy, unspecified, not intractable, without status epilepticus; I65.29 Occlusion and stenosis of unspecified carotid artery; R53.82 Chronic fatigue, unspecified; G25.2 Other specified forms of tremor; R41.3 Other amnesia; G89.29 Other chronic pain; R07.89 Other chest pain; E87.6 Hypokalemia; M79.605 Pain in left leg; M79.604 Pain in right leg; M54.50 Low back pain, unspecified; I12.9 Hypertensive chronic kidney disease with stage 1 through stage 4 chronic kidney disease, or unspecified chronic kidney disease
CPT/HCPCS: 36415; 76770; 80048; 80053; 80183; 82088; 85027; 87040; 87637; 93306; 97162; J1650; 71045; 80162; 81003; 81015; 83735; 84244; 84439; 84443; 84484; 85025; 87086; 93005; 93010; 99223; 99232; 99233; 99239; 99291; J3490